=== PATIENT | male | born 1995 | race Two or more races ===

== ENCOUNTER 2016-08-11 16:10 | Emergency (ER) | payer MEDICAID ==
--- NOTE | 2016-08-11 16:11 | ED Physician Chart ---
Chief Complaint/HPI - Patient Information Date Seen:: 08/11/16 Time Seen:: 16:11 Chief Complaint:: nausea History of Present Illness:: 20-year-old male, otherwise healthy complains of acute, moderate to severe, nausea 2 days with associated vomiting and diarrhea. Also has some burning on urination and dark colored urine for the past day. Denies fevers, gross hematuria, chest pain, palpitations, headache or acute vision changes, numbness to his distal extremities. Historian:: Patient Review:: Nurse's Note Reviewed Review of Systems - Review of Systems Other: Complete system review otherwise unremarkable except as noted in history of present illness. Past Medical History - Past Medical History Past Medical History: No significant medical hx Family History: None Social History: Non Smoker, No Alcohol, No Drug Use, Lives With Parents Surgical History: None Psychiatricy History: None Medication: None Family Medical History - Family Member Mother History Unknown: Yes Ethnicity: Physical Exam - Physical Examination Other:: INITIAL VITAL SIGNS: Reviewed by me GENERAL: Alert and interactive. No acute distress HEAD: Head is normocephalic and atraumatic EYES: EOMI. PERRL. No scleral icterus. No conjunctival injection ENT: Moist mucous membranes. NECK: Supple. No masses. Full range of motion RESPIRATORY: No tachypnea. Clear breath sounds bilaterally. No wheezing, rales, or rhonchi CV: Regular rate and rhythm. No murmurs, rubs, or gallops ABDOMEN: Soft, non-distended, non-tender. No guarding. No rebound. No masses. EXTREMITIES: No deformity. No cyanosis. No edema. SKIN: Warm and dry. No obvious rashes. NEUROLOGIC: Alert and oriented. Face is symmetric. Speech is normal. Moves all extremities equally. Motor and sensory distally intact. Labs/Radiology/EKG Results - Lab Results Results: Lab Results 08/11/16 08/11/16 08/11/16 Range/Units 16:15 16:15 16:31 WBC 7.0 (4.8-10.8) Th/cmm RBC 5.88 H (4.30-5.70) Mil/cmm Hgb 17.1 (13.2-17.3) gm/dL Hct 50.3 H (39.0-49.0) % MCV 85.6 (80-99) fl MCH 29.2 (26.0-30.0) pg MCHC Differential 34.1 (28.0-36.0) pg RDW 12.2 (11.5-20.0) % Plt Count 230 (150-400) Th/cmm MPV 7.4 fl Neutrophils % 78.3 (40.0-80.0) % Lymphocytes % 12.2 L (20.0-50.0) % Monocytes % 8.4 (2.0-10.0) % Eosinophils % 0.4 (0.0-5.0) % Basophils % 0.7 (0.0-2.0) % Sodium (136-145) mEq/L Potassium (3.5-5.1) mEq/L Chloride (98-107) mEq/L Carbon Dioxide (21.0-31.0) mEq/L Anion Gap (7.0-16.0) BUN (7-25) mg/dL Creatinine (0.7-1.3) mg/dL Est GFR ( Amer) (>90) ml/min Est GFR (Non-Af Amer) ml/min BUN/Creatinine Ratio Glucose (70-105) mg/dL Calcium (8.6-10.3) mg/dL Total Bilirubin (0.3-1.0) mg/dL AST (13-39) U/L ALT (7-52) U/L Alkaline Phosphatase (34-104) U/L Total Protein (6.0-8.3) gm/dL Albumin (4.2-5.5) gm/dL Globulin gm/dL Albumin/Globulin Ratio (1.0-1.8) Lipase (11-82) U/L Urine Source CLEAN C Urine Color ORANGE Urine Clarity CLEAR (CLEAR) Urine pH 6.5 Ur Specific [place] 1.025 (1.005-1.030) Urine Protein 100 H (NEGATIVE) mg/dL Urine Glucose (UA) NEGATIVE (NEGATIVE) mg/dL Urine Ketones NEGATIVE (NEGATIVE) mg/dL Urine Blood TRACE (NEGATIVE) Urine Nitrate NEGATIVE (NEGATIVE) Urine Bilirubin SMALL H (NEGATIVE) Urine Urobilinogen 1.0 (0.2 - 1.0) E.U./dL Ur Leukocyte Esterase NEGATIVE (NEGATIVE) Urine RBC 2-5 H (0-5) /hpf Urine WBC NONE SEEN (0-5) /hpf Ur Epithelial Cells NONE SEEN (FEW) /lpf Urine Bacteria NONE SEEN (NONE SEEN) /hpf Urine Opiates Screen NEGATIVE (NEGATIVE) Urine Methadone Screen NEGATIVE (NEGATIVE) Ur Barbiturates Screen NEGATIVE (NEGATIVE) Ur Tricyclics Screen NEGATIVE (NEGATIVE) Ur Phencyclidine Scrn NEGATIVE (NEGATIVE) Amphetamines Screen NEGATIVE (NEGATIVE) U Methamphetamines Scrn NEGATIVE (NEGATIVE) U Benzodiazepines Scrn NEGATIVE (NEGATIVE) U Cocaine Metab Screen NEGATIVE (NEGATIVE) U Cannabinoids Screen NEGATIVE (NEGATIVE) 08/11/16 08/11/16 Range/Units 16:31 16:31 WBC (4.8-10.8) Th/cmm RBC (4.30-5.70) Mil/cmm Hgb (13.2-17.3) gm/dL Hct (39.0-49.0) % MCV (80-99) fl MCH (26.0-30.0) pg MCHC Differential (28.0-36.0) pg RDW (11.5-20.0) % Plt Count (150-400) Th/cmm MPV fl Neutrophils % (40.0-80.0) % Lymphocytes % (20.0-50.0) % Monocytes % (2.0-10.0) % Eosinophils % (0.0-5.0) % Basophils % (0.0-2.0) % Sodium 134 L (136-145) mEq/L Potassium 3.3 L (3.5-5.1) mEq/L Chloride 97 L (98-107) mEq/L Carbon Dioxide 27.6 (21.0-31.0) mEq/L Anion Gap 12.7 (7.0-16.0) BUN 21 (7-25) mg/dL Creatinine 0.9 (0.7-1.3) mg/dL Est GFR ( Amer) > 60.0 (>90) ml/min Est GFR (Non-Af Amer) > 60.0 ml/min BUN/Creatinine Ratio 23.3 Glucose 104 (70-105) mg/dL Calcium 10.0 (8.6-10.3) mg/dL Total Bilirubin 2.1 H (0.3-1.0) mg/dL AST 21 (13-39) U/L ALT 23 (7-52) U/L Alkaline Phosphatase 66 (34-104) U/L Total Protein 8.4 H (6.0-8.3) gm/dL Albumin 4.9 (4.2-5.5) gm/dL Globulin 3.5 gm/dL Albumin/Globulin Ratio 1.4 (1.0-1.8) Lipase 10 L (11-82) U/L Urine Source Urine Color Urine Clarity (CLEAR) Urine pH Ur Specific Ida (1.005-1.030) Urine Protein (NEGATIVE) mg/dL Urine Glucose (UA) (NEGATIVE) mg/dL Urine Ketones (NEGATIVE) mg/dL Urine Blood (NEGATIVE) Urine Nitrate (NEGATIVE) Urine Bilirubin (NEGATIVE) Urine Urobilinogen (0.2 - 1.0) E.U./dL Ur Leukocyte Esterase (NEGATIVE) Urine RBC (0-5) /hpf Urine WBC (0-5) /hpf Ur Epithelial Cells (FEW) /lpf Urine Bacteria (NONE SEEN) /hpf Urine Opiates Screen (NEGATIVE) Urine Methadone Screen (NEGATIVE) Ur Barbiturates Screen (NEGATIVE) Ur Tricyclics Screen (NEGATIVE) Ur Phencyclidine Scrn (NEGATIVE) Amphetamines Screen (NEGATIVE) U Methamphetamines Scrn (NEGATIVE) U Benzodiazepines Scrn (NEGATIVE) U Cocaine Metab Screen (NEGATIVE) U Cannabinoids Screen (NEGATIVE) ED Septic Shock - . Is Septic Shock (SBP<90, OR Lactate>4 mmol\L) present?: No Reassessment (Disposition) - Reassessment Reassessment:: Patient presents with nausea vomiting diarrhea. Also has some dysuria. Labs have some minor abdomen allergies but otherwise unremarkable. Findings with patient. Gave 2 L IV fluids for dehydration. Provided Toradol, Zofran and Imodium. Symptoms improved. Patient discharged home with prescription for Zofran. Follow-up PCP 1-2 days. Return to ER precautions given. Patient says he understands and agrees with the plan. Reassessment Condition:: Improved - Diagnosis Diagnosis:: Acute nausea, vomiting, diarrhea due to viral gastroenteritis Acute dysuria due to dehydration - Aftercare/Follow up Instructions Aftercare/Follow-Up Instructions:: Counseled pt regarding lab results/diagnosis & need follow up, Refer to Discharge Instructions Medication Prescribed:: Zofran - Patient Disposition Discharge/Transfer:: Home Time:: 17:44 Condition at Disposition:: Improved ED Discharge Plan - Patient Disposition Admit/Discharge/Transfer: PT DISCHARGED HOME Condition at Disposition: Improved Instructions: Viral Gastroenteritis, [id number]
[2016-08-11] MEDS ORDERED: Sodium Chloride 0.9% 1,000 ML IV ONE ×2 (16:12→17:11)
[2016-08-11 16:37] LABS: % BASOPHILS 0.7 % (0.0-2.0); % EOSINOPHILS 0.4 % (0.0-5.0); % LYMPHOCYTES 12.2 % (20.0-50.0); % MONOCYTES 8.4 % (2.0-10.0); % NEUTROPHILS 78.3 % (40.0-80.0); HEMATOCRIT 50.3 % (39.0-49.0); HEMOGLOBIN 17.1 gm/dL (13.2-17.3); MEAN CELL VOLUME 85.6 fl (80-99); MEAN CORPUSCULAR HEMOGLOBIN 29.2 pg (26.0-30.0); MEAN CORPUSCULAR HGB CONC 34.1 pg (28.0-36.0); MEAN PLATELET VOLUME 7.4 fl; NEUTROPHILE ABSOLUTE 5.5 Th/cmm (1.8-8.0); PLATELET COUNT 230 Th/cmm (150-400); RED BLOOD COUNT 5.88 Mil/cmm (4.30-5.70); RED CELL DISTRIBUTION WIDTH 12.2 % (11.5-20.0)
[2016-08-11 16:51] LABS: URINE BILIRUBIN SMALL (NEGATIVE); URINE BLOOD TRACE (NEGATIVE); URINE COLOR ORANGE; URINE GLUCOSE (UA) NEGATIVE (NEGATIVE); URINE KETONE NEGATIVE (NEGATIVE)
[2016-08-11 16:52] LABS: URINE PH 6.5
[2016-08-11 16:53] LABS: URINE PROTEIN 100 mg/dL (NEGATIVE)
[2016-08-11 16:54] LABS: URINE BACTERIA NONE SEEN /hpf (NONE SEEN); URINE EPITHELIAL CELLS NONE SEEN /lpf (FEW); URINE WBC NONE SEEN /hpf (0-5)
[2016-08-11 16:58] LABS: AMPHETAMINE URINE NEGATIVE (NEGATIVE); BARBITURATES URINE NEGATIVE (NEGATIVE); METHADONE URINE NEGATIVE (NEGATIVE)
[2016-08-11 16:59] LABS: ALB/GLOB RATIO 1.4 (1.0-1.8); ALKALINE PHOSPHATASE 66 U/L (34-104); ANION GAP 12.7 (7.0-16.0); BILIRUBIN,TOTAL 2.1 mg/dL (0.3-1.0); BUN - UREA NITROGEN 21 mg/dL (7-25); BUN/CREATININE RATIO 23.3; CARBON DIOXIDE 27.6 mEq/L (21.0-31.0); CHLORIDE 97 mEq/L (98-107); CREATININE - SERUM 0.9 mg/dL (0.7-1.3); GLUCOSE 104 mg/dL (70-105); POTASSIUM SERUM 3.3 mEq/L (3.5-5.1); SGOT 21 U/L (13-39); SGPT/ALT 23 U/L (7-52); SODIUM SERUM 134 mEq/L (136-145)
== END 2016-08-11 18:25 | disposition home or self-care (01) ==
LOC: ER 16:10
DX: A08.4 Viral intestinal infection, unspecified (principal); E86.0 Dehydration
CPT/HCPCS: 99284; 96374; 96375; 80307; 36415; 85025; 81001; 83690; 80053; J1885; J2405; J7030; Z7502

== ENCOUNTER 2016-08-20 05:47 | Emergency (ER) | payer MEDICAID ==
--- NOTE | 2016-08-20 06:42 | ED Physician Chart ---
Chief Complaint/HPI - Patient Information Date Seen:: 08/20/16 Time Seen:: 06:32 Chief Complaint:: rt 3rd finger infection History of Present Illness:: pt has had swelling and pain at rt 3rd finger x 3-4 days. it now hurts to bend. he saw a dr wednesday and got a rx for keflex and motrin and it taking both wo improvement. swelling and pain now up to proximal hand. no injury recalled. no etta pmh. no hx of DM. Allergies:: Allergies Allergy/AdvReac Type Severity Reaction Status Date / Time No Known Allergies Allergy Verified 08/11/16 16:20 Vitals:: Vital Signs - 8 hr 08/20/16 06:00 Temp 97.8 F HR 66 RR 18 BP 132/72 O2 Sat % 100 Historian:: Patient, Family Member Review of Systems - Review of Systems General/Constitutional: No fever, No chills, No weight loss, No weakness, No diaphoresis, No edema, No loss of appetite Skin: No skin lesions, No rash, No bruising Head: No headache, No light-headedness Eyes: No loss of vision, No pain, No diplopia ENT: No earache, No nasal drainage, No sore throat, No tinnitus Neck: No neck pain, No swelling, No thyromegaly, No stiffness, No mass noted Cardio Vascular: No chest pain, No palpitations, No PND, No orthopnea, No edema Pulmonary: No SOB, No cough, No sputum, No wheezing GI: No nausea, No vomiting, No diarrhea, No pain, No melena, No hematochezia, No constipation, No hematemesis G/U: No dysuria, No frequency, No hematuria Musculoskeletal: No bone or joint pain, No back pain, No muscle pain, Other ( finger pain) Endocrine: No polyuria, No polydipsia Psychiatric: No prior psych history, No depression, No anxiety, No suicidal ideation Hematopoietic: No bruising, No lymphadenopathy Allergic/Immuno: No urticaria, No angioedema Neurological: No syncope, No focal symptoms, No weakness, No paresthesia, No headache, No seizure, No dizziness, No confusion, No vertigo Past Medical History - Past Medical History Past Medical History: No significant medical hx Social History: Lives With Parents Medication: Reviewed Family Medical History - Family Member Mother History Unknown: Yes Ethnicity: Physical Exam - Physical Examination General/Constitutional: Awake, Well-developed, well-nourished, Alert, No distress, GCS 15, Non-toxic appearing, Ambulatory Head: Atraumatic Eyes: Lids, conjuctiva normal, PERRL, EOMI Skin: Nl inspection, No rash, No skin lesions, No ecchymosis, Well hydrated, No lymphadenopathy ENMT: External ears, nose nl, Nasal exam nl, Lips, teeth, gums nl Neck: Nontender, Full ROM w/o pain, No JVD, No nuchal rigidity, No bruit, No mass, No stridor Respiratory: Nl effort/Exclusion, Clear to Auscultation, No Wheeze/Rhonchi/Rales Cardio Vascular: RRR, No murmur, gallop, rubs, NL S1 S2 GI: No tenderness/rebounding/guarding, No organomegaly, No hernia, Normal BS's, Nondistended, No mass/bruits, No McBurney tenderness : No CVA tenderness Extremities: No tenderness or effusion, Full ROM, normal strength in all extremities, No edema, Normal digits & nails Other Extremities comments:: rt 3rd finger has been painted w a purple medicine topical abx from [place] which obscurs exam and pt is unable to wash it off w soap and water (tried here) . there is tenderness along the dorsal finger along the extensor tendon w slight sausage swelling of entire finger and a def bulge around the mid phalynx dorsally that is most tender. pain w attempt to bend. cap refill ok. sensation ok. no red streak up arm. Neuro/Psych: Alert/oriented, DTR's symmetric, Normal sensory exam, Normal motor strength, Judgement/insight normal, Mood normal, Normal gait, No focal deficits Misc: normal gait, Normal back, No paraspinal tenderness ED Septic Shock - . Is Septic Shock (SBP<90, OR Lactate>4 mmol\L) present?: No - <6hrs of presentation: Vital Signs: Vital Signs - 8 hr 08/20/16 06:00 Temp 97.8 F HR 66 RR 18 BP 132/72 O2 Sat % 100 Reassessment (Disposition) - Reassessment Reassessment:: case dw dr mtz...we have no OR due to mold contamination now. also he does not do tendon drainage and advises we refer. pt to hand surgeon. we have no hand surgeon on staff Reassessment Condition:: Unchanged - Diagnosis Diagnosis:: tenosynovitis of rt 3rd finger - Aftercare/Follow up Instructions Aftercare/Follow-Up Instructions:: Counseled pt & family regarding lab results/ diagnosis & need follow up Notes:: continue keflex. advise pt to go to hand surgeon today --either through pmd referral or go to [facility]. explained dx and need for tx to rosanne dsouza commercial loan manager. - Patient Disposition Discharge/Transfer:: Home Condition at Disposition:: Unchanged
== END 2016-08-20 06:50 | disposition home or self-care (01) ==
LOC: ER 05:47
DX: M65.9 Synovitis and tenosynovitis, unspecified (principal)
CPT/HCPCS: Z7502